=== PATIENT | male | born 1970 | race Caucasian/White ===

== ENCOUNTER → 2018-11-02 | Outpatient (CLI) | payer BC ==
--- NOTE | 2018-11-02 16:37 | REP ---
Left ankle four views : There is no fracture or dislocation. Mineralization and joint spaces are normal. There are no calcifications or foreign bodies except for a large calcaneal Achilles spur. . Impression: Negative left ankle except for a large calcaneal Achilles spur. Electronically Signed by Gary Archer MD 11/02/2018 04:28 P
== END ==
LOC: M WUC 15:49
PROVIDERS: ATTEND Physician Assistant
DX: M25.572 Pain in left ankle and joints of left foot (principal)